=== PATIENT | female | born 1990 | race Caucasian/White ===

== ENCOUNTER 2020-12-08 21:26 | Emergency (ER) | payer OTHER ==
[2020-12-08] MEDS ORDERED: NORCO 5-325 TA1 EACH PO (23:35)
== END 2020-12-08 23:54 | disposition home or self-care (01) ==
LOC: FER 21:26
DX: S63.654A Sprain of metacarpophalangeal joint of right ring finger, initial encounter (principal); S63.656A Sprain of metacarpophalangeal joint of right little finger, initial encounter; R06.02 Shortness of breath; Z88.5 Allergy status to narcotic agent; Z88.6 Allergy status to analgesic agent; W19.XXXA Unspecified fall, initial encounter
CPT/HCPCS: 73130